=== PATIENT | male | born 1955 | race African-American/Black ===

== ENCOUNTER 2016-09-26 17:34 | Emergency (ER) | payer OTHER, BC ==
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
[2016-09-26] MEDS ORDERED: CYCLOBENZAPRINE HCL 10 MG TABLET PO ONE (21:04)
[2016-09-26] MEDS ORDERED: NAPROXEN 375 MG TABLET PO ONE (21:04)
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
[2016-09-26 21:54] VITALS: BP 154/98
== END 2016-09-26 21:54 | disposition home or self-care (01) ==
LOC: ER 17:34
DX: M54.6 Pain in thoracic spine (principal); V44.5XXA Car driver injured in collision with heavy transport vehicle or bus in traffic accident, initial encounter; I10 Essential (primary) hypertension
CPT/HCPCS: 99283; 71020; J3490

== ENCOUNTER → 2016-10-23 | Outpatient (CLI) | payer OTHER, BC ==
[2016-10-23 14:48] LABS: HEMATOCRIT 43.7 % (37.9-51.0); HEMOGLOBIN 14.8 g/dL (13.5-17.0); HGB HCT DIFFERENCE 0.7; MEAN CORPUSCULAR HEMOGLOBIN 32.1 pg (27.0-33.4); MEAN CORPUSCULAR HGB CONC 33.8 g/dL (32.0-36.0); MEAN CORPUSCULAR VOLUME 95 fl (80-97); RED BLOOD COUNT 4.59 10^6/uL (4.35-5.55); RED CELL DISTRIBUTION WIDTH 13.7 % (11.5-14.0); WHITE BLOOD COUNT 4.3 10^3/uL (4.0-10.5)
[2016-10-23 14:58] LABS: ALANINE AMINOTRANSFERASE 42 U/L (21-72); ALBUMIN 4.2 g/dL (3.5-5.0); ALKALINE PHOSPHATASE 83 U/L (38-126); ANION GAP 10 (5-19); ASPARTATE AMINO TRANSFERASE 52 U/L (17-59); BILIRUBIN,TOTAL 0.9 mg/dL (0.2-1.3); BLOOD UREA NITROGEN 16 mg/dL (7-20); CALCIUM 9.9 mg/dL (8.4-10.2); CARBON DIOXIDE 26 mmol/L (22-30); CHLORIDE 105 mmol/L (98-107); CREATININE RESULT 0.93 mg/dL (0.52-1.25); Direct HDL 51 mg/dL (>40); GLUCOSE 83 mg/dL (75-110); POTASSIUM 4.3 mmol/L (3.6-5.0); SODIUM 141.3 mmol/L (137-145); TOTAL PROTEIN 7.6 g/dL (6.3-8.2)
[2016-10-23 15:09] LABS: DIRECT LDL 75 mg/dL (<100)
[2016-10-23 15:15] LABS: BASOPHILS % (MANUAL) 1 % (0-2); EOSINOPHILS % (MANUAL) 2 % (0-6); LYMPHOCYTES % (MANUAL) 61 % (13-45); POLYCHROMASIA SLIGHT; TOTAL CELLS COUNTED 100
[2016-10-23 15:30] LABS: TRIGLYCERIDES 79 mg/dL (<150); VLDL CHOLESTEROL 15.8 mg/dL (10-31)
== END ==
LOC: OD 13:48
DX: Z79.899 Other long term (current) drug therapy (principal); I10 Essential (primary) hypertension
CPT/HCPCS: 36415; 80053; 80061; 83036; 84153; 84443; 85025

== ENCOUNTER 2017-01-05 14:00 | Emergency (ER) | payer BC ==
[2017-01-05] MEDS ORDERED: NORMAL SALINE 1000 ML 1,000 ML IV ONE (14:13)
--- NOTE | 2017-01-05 14:14 | ER Document Report ---
ED Medical Screen (RME) - General Chief Complaint: Diarrhea Stated Complaint: STOMACH PAIN Time Seen by Provider: 01/05/17 14:10 TRAVEL OUTSIDE OF THE [place] IN LAST 30 DAYS: No - HPI Notes: 01/05/17 14:14 Left lower quadrant pain nausea vomiting diarrhea 4 days - Related Data Allergies/Adverse Reactions: No Known Allergies Allergy (Verified 01/05/17 14:10) Past Medical History - Social History Chew tobacco use (# tins/day): No Frequency of alcohol use: Occasional Drug Abuse: None - Past Medical History Cardiac Medical History: Reports: Hx Hypertension Renal/ Medical History: Denies: Hx Peritoneal Dialysis Musculoskeltal Medical History: Reports Hx Arthritis, Reports Hx Musculoskeletal Deformity, Reports Hx Musculoskeletal Trauma Skin Medical History: Reports Hx Cellulitis - Immunizations Hx Diphtheria, Pertussis, Tetanus Vaccination: Yes Review of Systems - Review of Systems Gastrointestinal: Abdominal pain, Diarrhea, Nausea, Vomiting Physical Exam - Vital signs Vitals: Temp Pulse Resp BP Pulse Ox 99.7 F 92 18 115/99 H 98 01/05/17 14:01 01/05/17 14:01 01/05/17 14:01 01/05/17 14:01 01/05/17 14:01 - Abdominal Tenderness: No: Nontender - Left lower quadrant tenderness mild to moderate no rebound no guarding Course - Re-evaluation Re-evalutation: 01/05/17 14:14 I have greeted and performed a rapid initial assessment of this patient. A comprehensive ED assessment and evaluation of the patient, analysis of test results and completion of the medical decision making process will be conducted by additional ED providers. - Vital Signs Vital signs: Temp Pulse Resp BP Pulse Ox 99.7 F 92 18 115/99 H 98 01/05/17 14:01 01/05/17 14:01 01/05/17 14:01 01/05/17 14:01 01/05/17 14:01
[2017-01-05 14:56] LABS: ABSOLUTE MONOCYTES (AUTO) 0.3 10^3/uL (0.1-1.4); ABSOLUTE NEUT (AUTO) 7.5 10^3/uL (1.7-8.2); BASOPHILS % (AUTO) 0.3 % (0-2); HEMOGLOBIN 15.7 g/dL (13.5-17.0); HGB HCT DIFFERENCE 0.1; LYMPHOCYTES % (AUTO) 10.9 % (13-45); MEAN CORPUSCULAR HEMOGLOBIN 32.3 pg (27.0-33.4); MEAN CORPUSCULAR HGB CONC 33.5 g/dL (32.0-36.0); MEAN CORPUSCULAR VOLUME 96 fl (80-97); MONOCYTES % (AUTO) 3.6 % (3-13); RED BLOOD COUNT 4.88 10^6/uL (4.35-5.55); SEGMENTED NEUTROPHILS % (AUTO) 85.2 % (42-78); WHITE BLOOD COUNT 8.8 10^3/uL (4.0-10.5)
--- NOTE | 2017-01-05 14:59 | ER Document Report ---
ED GI/ - General Chief Complaint: Diarrhea Stated Complaint: STOMACH PAIN Time Seen by Provider: 01/05/17 14:10 Mode of Arrival: Ambulatory Information source: Patient Notes: 61 yo male c/o diarrhea and upper abdominal pain for 4 days. Anus is also irritated from all the diarrhea. In room with his . No fever today. No dysuria, frequency, groin or penile pain. TRAVEL OUTSIDE OF THE [place] IN LAST 30 DAYS: No - Related Data Allergies/Adverse Reactions: No Known Allergies Allergy (Verified 01/05/17 14:10) Past Medical History - General Information source: Patient - Social History Smoking Status: Never Smoker Chew tobacco use (# tins/day): No Frequency of alcohol use: Occasional Drug Abuse: None Lives with: Family Family History: Reviewed & Not Pertinent - Past Medical History Cardiac Medical History: Reports: Hx Hypertension Renal/ Medical History: Denies: Hx Peritoneal Dialysis Musculoskeltal Medical History: Reports Hx Arthritis, Reports Hx Musculoskeletal Deformity, Reports Hx Musculoskeletal Trauma Skin Medical History: Reports Hx Cellulitis Surgical Hx: Negative - Immunizations Hx Diphtheria, Pertussis, Tetanus Vaccination: Yes Review of Systems - Review of Systems Constitutional: No symptoms reported EENT: No symptoms reported Cardiovascular: No symptoms reported Respiratory: No symptoms reported Gastrointestinal: See HPI Genitourinary: No symptoms reported Male Genitourinary: No symptoms reported Musculoskeletal: No symptoms reported Skin: No symptoms reported Hematologic/Lymphatic: No symptoms reported Neurological/Psychological: No symptoms reported Physical Exam - Vital signs Vitals: Temp Pulse Resp BP Pulse Ox 99.7 F 92 18 115/99 H 98 01/05/17 14:01 01/05/17 14:01 01/05/17 14:01 01/05/17 14:01 01/05/17 14:01 Interpretation: Normal - General General appearance: Appears well, Alert - HEENT Head: Normocephalic, Atraumatic Eyes: Normal Conjunctiva: Normal Pupils: PERRL Mucous membranes: Dry Pharynx: Normal Neck: Supple. No: Lymphadenopathy - Respiratory Respiratory status: No respiratory distress Chest status: Nontender Breath sounds: Normal Chest palpation: Normal - Cardiovascular Rhythm: Regular Heart sounds: Normal auscultation Murmur: No - Abdominal Inspection: Normal Distension: No distension Bowel sounds: Normal Tenderness: Tender - minimal epigstric, RUQ Organomegaly: No organomegaly. No: Hepatomegaly, Splenomegaly - Back Back: Normal, Nontender. No: CVA tenderness - Extremities General upper extremity: Normal inspection, Nontender, Normal color, Normal ROM , Normal temperature General lower extremity: Normal inspection, Nontender, Normal color, Normal ROM , Normal temperature, Normal weight bearing. No: Estela's sign - Neurological Neuro grossly intact: Yes Cognition: Normal Orientation: AAOx4 Yelitza Coma Scale Eye Opening: Spontaneous Yelitza Coma Scale Verbal: Oriented Yelitza Coma Scale Motor: Obeys Commands Yelitza Coma Scale Total: 15 Speech: Normal Motor strength normal: LUE, RUE, LLE, RLE Sensory: Normal - Psychological Associated symptoms: Normal affect, Normal mood - Skin Skin Temperature: Warm Skin Moisture: Dry Skin Color: Normal Skin irregularity: negative: Rash Course - Re-evaluation Re-evalutation: 01/05/17 16:[address] scan, lactic acid is 1, CBC is normal, electrolytes show creatinine of 1.3. 01/05/17 17:19 Consult this bone treatment with Dr. Aj, CT scan shows a right upper quadrant colitis with a liver hemangioma 01/05/17 17:19 - Vital Signs Vital signs: Temp Pulse Resp BP Pulse Ox 99.7 F 92 17 152/88 H 98 01/05/17 14:01 01/05/17 14:01 01/05/17 17:35 01/05/17 17:35 01/05/17 17:35 - Laboratory Result Diagrams: 01/05/17 14:32 01/05/17 14:32 Laboratory results interpreted by me: 01/05/17 01/05/17 14:32 14:32 Seg Neutrophils % 85.2 H Lymphocytes % 10.9 L Creatinine 1.30 H Est GFR (Non-Af Amer) 56 L Discharge - Discharge Clinical Impression: right upper quadrant colitis, Anal inflammation, liver hemangioma Diarrhea Qualifiers: Diarrhea type: unspecified type Qualified Code(s): R19.7 - Diarrhea, unspecified Condition: Good Disposition: HOME, SELF-CARE Instructions: Metronidazole ([facility]), Ciprofloxacin ([facility]), Colitis, Nonspecific ( [facility]), Gastroenterology Additional Instructions: continue to hydrate with oral fluids advance diet as tolerated referral to architectural inspector for colonoscopy/treatment to er if worse let your primary care doctor know about the liver hemangioma Please complete the patient satisfaction survey if you get one, and return it.. If you do not receive a survey, then you can go to the [facility] website, [email or web address] and place your comments about your very good care. Thank you very much. It was a pleasure being your medical provider today. Prescriptions: Ciprofloxacin HCl [Cipro 500 mg Tablet] 500 mg PO TID #21 tablet Hydrocortisone Acetate [Anusol Hc 25 mg Supp.rect] 1 supp.rect CO BID #14 supp.rect Metronidazole 500 mg PO Q6H #28 tablet Forms: Return to Work
[2017-01-05 15:14] LABS: ALANINE AMINOTRANSFERASE 37 U/L (21-72); ALBUMIN 4.2 g/dL (3.5-5.0); ALKALINE PHOSPHATASE 78 U/L (38-126); ANION GAP 13 (5-19); ASPARTATE AMINO TRANSFERASE 32 U/L (17-59); BILIRUBIN,DIRECT 0.4 mg/dL (0.0-0.4); BILIRUBIN,TOTAL 0.8 mg/dL (0.2-1.3); BLOOD UREA NITROGEN 14 mg/dL (7-20); CALCIUM 9.4 mg/dL (8.4-10.2); CARBON DIOXIDE 24 mmol/L (22-30); CHLORIDE 101 mmol/L (98-107); GLUCOSE 92 mg/dL (75-110); LIPASE 81.8 U/L (23-300); POTASSIUM 3.9 mmol/L (3.6-5.0); SODIUM 137.6 mmol/L (137-145)
[2017-01-05] MEDS ORDERED: METRONIDAZOLE 500 MG TABLET PO ONE (17:07)
[2017-01-05] MEDS ORDERED: CIPROFLOXACIN HCL 500 MG TABLET PO ONE ×2 (17:07)
[2017-01-05 17:43] VITALS: BP 152/88
== END 2017-01-05 17:42 | disposition home or self-care (01) ==
LOC: ER 14:00
DX: K52.9 Noninfective gastroenteritis and colitis, unspecified (principal); K62.89 Other specified diseases of anus and rectum; D18.03 Hemangioma of intra-abdominal structures; R19.7 Diarrhea, unspecified; R10.10 Upper abdominal pain, unspecified; I10 Essential (primary) hypertension
CPT/HCPCS: 99284; 96360; 36415; 83690; 85025; 80053; 83605; 74177; J7030

== ENCOUNTER 2018-02-09 16:17 | Inpatient (IN) | payer SELFPAY ==
[2018-02-09] MEDS ORDERED: NORMAL SALINE 1000 ML 1,000 ML IV ONE ×2 (19:24→21:13)
--- NOTE | 2018-02-09 19:29 | ER Document Report ---
ED Medical Screen (RME) - General Chief Complaint: Weakness Stated Complaint: WEAKNESS/DIZZY Time Seen by Provider: 02/09/18 19:23 TRAVEL OUTSIDE OF THE [place] IN LAST 30 DAYS: No - HPI Notes: 02/09/18 19:25 Patient is a 62-year-old male with a history of hypertension who presents to the ED complaining of weakness, dizziness, and muscle cramping primarily 3 days ago when he was at work. 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 Patient states that he started feeling warm, dizzy, and cramping at that time. Patient states that he had to lay down for a little while and was given water. Patient states that he went home and stayed in bed all day Friday. Patient states that he now feels much better than he did and does not have any more dizziness, weakness , or muscle cramping, but wanted evaluated to make sure that he was okay to go back to work. He states that he is eating and drinking without any difficulties. He is urinating normally and having normal bowel movements although he did have one loose stool this morning. He denies any drug allergies. No other concerns or complaints. +smoker. No other significant cardiopulmonary medical history. Denies any prolonged immobilization, recent surgery/trauma, previous DVT/PE, hormone use, cancer. Denies any headache, fever, neck pain, changes in vision/speech/mentation/hearing, URI, sore throat, chest pain, palpitations, syncope, cough, shortness of breath, wheeze, dyspnea, abdominal pain, nausea/vomiting/diarrhea, urinary retention, dysuria, hematuria , loss of control of bowel or bladder, numbness/tingling, muscle paralysis/ weakness, or rash. I have treated and performed a rapid initial assessment of this patient. A comprehensive ED assessment and evaluation of the patient, analysis of test results and completion of medical decision making process will be conducted by additional ED providers. PHYSICAL EXAMINATION: GENERAL: Well-appearing, well-nourished and in no acute distress. A&Ox4. Answers questions appropriately. LUNGS: Breath sounds clear to auscultation bilaterally and equal. No wheezes rales or rhonchi. HEART: Regular rate and rhythm without murmurs, rubs, gallops. ABDOMEN: Soft, nondistended abdomen. No guarding, no rebound. No masses appreciated. Normal bowel sounds present. No CVA tenderness bilaterally. Non- tender (but cannot elicit thorough abd exam w/o table). Extremities: No cyanosis, clubbing, or edema b/l. Estela neg b/l. No asymmetry NEUROLOGICAL: Normal speech, normal gait. PSYCH: Normal mood, normal affect. - Related Data Allergies/Adverse Reactions: No Known Allergies Allergy (Verified 01/05/17 14:10) Past Medical History - Past Medical History Cardiac Medical History: Reports: Hx Hypertension Renal/ Medical History: Denies: Hx Peritoneal Dialysis Musculoskeltal Medical History: Reports Hx Arthritis, Reports Hx Musculoskeletal Deformity, Reports Hx Musculoskeletal Trauma Skin Medical History: Reports Hx Cellulitis - Immunizations Hx Diphtheria, Pertussis, Tetanus Vaccination: Yes Physical Exam - Vital signs Vitals: Temp Pulse Resp BP Pulse Ox 98.7 F 58 L 20 116/70 99 02/09/18 16:29 02/09/18 16:29 02/09/18 16:29 02/09/18 16:29 02/09/18 16:29 Course - Vital Signs Vital signs: Temp Pulse Resp BP Pulse Ox 98.7 F 58 L 20 116/70 99 02/09/18 16:29 02/09/18 16:29 02/09/18 16:29 02/09/18 16:29 02/09/18 16:29
[2018-02-09 19:54] LABS: ABSOLUTE BASOPHILS # (AUTO) 0.1 10^3/uL (0.0-0.2); ABSOLUTE EOSINOPHILS # (AUTO) 0.2 10^3/uL (0.0-0.6); ABSOLUTE LYMPHOCYTES (AUTO) 2.5 10^3/uL (0.5-4.7); ABSOLUTE MONOCYTES (AUTO) 0.4 10^3/uL (0.1-1.4); ABSOLUTE NEUT (AUTO) 1.6 10^3/uL (1.7-8.2); BASOPHILS % (AUTO) 1.2 % (0-2); EOSINOPHILS % (AUTO) 4.1 % (0-6); HEMATOCRIT 41.4 % (37.9-51.0); HEMOGLOBIN 13.8 g/dL (13.5-17.0); LYMPHOCYTES % (AUTO) 52.9 % (13-45); MEAN CORPUSCULAR HEMOGLOBIN 31.9 pg (27.0-33.4); MEAN CORPUSCULAR HGB CONC 33.4 g/dL (32.0-36.0); MEAN CORPUSCULAR VOLUME 96 fl (80-97); MONOCYTES % (AUTO) 8.3 % (3-13); PLATELET COUNT 225 10^3/uL (150-450); RED BLOOD COUNT 4.33 10^6/uL (4.35-5.55); RED CELL DISTRIBUTION WIDTH 14.2 % (11.5-14.0); SEGMENTED NEUTROPHILS % (AUTO) 33.5 % (42-78); TOTAL CELLS COUNTED % (AUTO) 100 %; WHITE BLOOD COUNT 4.8 10^3/uL (4.0-10.5)
[2018-02-09 19:59] LABS: APPEARANCE,URINE CLEAR; BILIRUBIN,URINE NEGATIVE (NEGATIVE); COLOR,URINE STRAW; GLUCOSE, URINE NEGATIVE (NEGATIVE); KETONES,URINE NEGATIVE (NEGATIVE); LEUKOCYTE ESTERASE,URINE NEGATIVE (NEGATIVE); NITRITE,URINE NEGATIVE (NEGATIVE); PROTEIN,URINE NEGATIVE (NEGATIVE); URINE SPECIFIC GRAVITY 1.014; UROBILINOGEN,URINE NEGATIVE mg/dL (<2.0)
[2018-02-09 20:11] LABS: ALANINE AMINOTRANSFERASE 33 U/L (21-72); ALBUMIN 4.4 g/dL (3.5-5.0); ALKALINE PHOSPHATASE 79 U/L (38-126); ANION GAP 11 (5-19); ASPARTATE AMINO TRANSFERASE 37 U/L (17-59); BILIRUBIN,DIRECT 0.3 mg/dL (0.0-0.4); BILIRUBIN,TOTAL 0.3 mg/dL (0.2-1.3); BLOOD UREA NITROGEN 84 mg/dL (7-20); CALCIUM 9.3 mg/dL (8.4-10.2); CARBON DIOXIDE 24 mmol/L (22-30); CHLORIDE 111 mmol/L (98-107); CREATINE KINASE 925 U/L (55-170); GLUCOSE 86 mg/dL (75-110); SODIUM 145.9 mmol/L (137-145); TOTAL PROTEIN 8.4 g/dL (6.3-8.2)
[2018-02-09 20:17] LABS: POTASSIUM 6.3 mmol/L (3.6-5.0)
--- NOTE | 2018-02-09 21:37 | ER Document Report ---
ED General - General Chief Complaint: Weakness Stated Complaint: WEAKNESS/DIZZY Time Seen by Provider: 02/09/18 19:23 Notes: Patient is a 62-year-old male with history of essential hypertension who presents with 2 days of body aches, fatigue, and lightheadedness. Patient and his significant other at the bedside reports that the symptoms started after he was working outside all day on Friday and have been ongoing since that time. The patient reports that he has been drinking fluids which usually helps when he has similar symptoms but they have not relieved his symptoms on this occasion. He notes some associated nausea but no vomiting. He has not seen his general doctor regarding today's concerns. Nothing is been noted to worsen his symptoms. He denies any associated chest pain or shortness of breath. No fever. TRAVEL OUTSIDE OF THE [place] IN LAST 30 DAYS: No - Related Data Allergies/Adverse Reactions: No Known Allergies Allergy (Verified 01/05/17 14:10) Past Medical History - General Information source: Patient - Social History Smoking Status: Current Every Day Smoker Chew tobacco use (# tins/day): No Frequency of alcohol use: Rare Drug Abuse: None Lives with: Spouse/Significant other Family History: Reviewed & Not Pertinent Patient has suicidal ideation: No Patient has homicidal ideation: No - Past Medical History Cardiac Medical History: Reports: Hx Hypertension Renal/ Medical History: Denies: Hx Peritoneal Dialysis Musculoskeltal Medical History: Reports Hx Arthritis, Reports Hx Musculoskeletal Deformity, Reports Hx Musculoskeletal Trauma Skin Medical History: Reports Hx Cellulitis - Immunizations Hx Diphtheria, Pertussis, Tetanus Vaccination: Yes Review of Systems - Review of Systems Notes: Constitutional: Negative for fever. Positive for body aches HENT: Negative for sore throat. Eyes: Negative for visual changes. Cardiovascular: Negative for chest pain. Positive for lightheadedness Respiratory: Negative for shortness of breath. Gastrointestinal: Negative for abdominal pain, vomiting or diarrhea. Genitourinary: Negative for dysuria. Musculoskeletal: Negative for back pain. Skin: Negative for rash. Neurological: Negative for headaches, weakness or numbness. 10 point ROS negative except as marked above and in HPI. Physical Exam - Vital signs Vitals: Temp Pulse Resp BP Pulse Ox 98.7 F 58 L 20 116/70 99 02/09/18 16:29 02/09/18 16:29 02/09/18 16:29 02/09/18 16:29 02/09/18 16:29 Interpretation: Bradycardic Notes: PHYSICAL EXAMINATION: GENERAL: Well-appearing, well-nourished and in no acute distress. HEAD: Atraumatic, normocephalic. EYES: Pupils equal round and reactive to light, extraocular movements intact, sclera anicteric, conjunctiva are normal. ENT: nares patent, oropharynx clear without exudates. Moderately dry mucous membranes. NECK: Normal range of motion, supple without lymphadenopathy LUNGS: Breath sounds clear to auscultation bilaterally and equal. No wheezes rales or rhonchi. HEART: Regular bradycardia without murmurs ABDOMEN: Soft, nontender, normoactive bowel sounds. No guarding, no rebound. No masses appreciated. EXTREMITIES: Normal range of motion, no pitting or edema. No cyanosis. NEUROLOGICAL: No focal neurological deficits. Moves all extremities spontaneously and on command. PSYCH: Normal mood, normal affect. SKIN: Warm, Dry, normal turgor, no rashes or lesions noted. Course - Re-evaluation Re-evalutation: 02/09/18 21:35 Patient presents in acute renal failure appears to be from a prerenal azotemia and clinical history is consistent with severe dehydration with associated probable rhabdomyolysis from an event 2 days ago when he was outside almost all day. The patient's symptoms have been ongoing since that time. His labs are also notable for hyperkalemia at 6.3 although there are no EKG changes. The patient is otherwise nontoxic in appearance, vitals do show that he is bradycardic which he notes his brace baseline. He does appear clinically dehydrated on examination. Will immediately order 2 L of IV fluid, continuous cardiac monitoring, request hospitalization. - Vital Signs Vital signs: Temp Pulse Resp BP Pulse Ox 98.1 F 52 L 20 106/66 100 02/10/18 03:50 02/10/18 03:50 02/10/18 03:50 02/10/18 03:50 02/10/18 03:50 - Laboratory Result Diagrams: 02/09/18 19:30 02/09/18 19:30 Laboratory results interpreted by me: 02/09/18 02/09/18 02/09/18 19:30 19:30 19:30 RBC 4.33 L RDW 14.2 H Seg Neutrophils % 33.5 L Lymphocytes % 52.9 H Absolute Neutrophils 1.6 L Sodium 145.9 H Potassium 6.3 H* Chloride 111 H BUN 84 H Creatinine 3.90 H Est GFR ( Amer) 19 L Est GFR (Non-Af Amer) 16 L Magnesium 2.6 H Creatine Kinase 925 H Total Protein 8.4 H Urine Blood SMALL H - EKG Interpretation by Me Additional EKG results interpreted by me: 02/09/18 21:36 Sinus bradycardia. Rate 49. No ST elevations or depressions. QTC is 383. Discharge - Discharge Clinical Impression: Prerenal azotemia, Hyperkalemia Acute renal failure Qualifiers: Acute renal failure type: unspecified Qualified Code(s): N17.9 - Acute kidney failure, unspecified Rhabdomyolysis Qualifiers: Rhabdomyolysis type: non-traumatic Qualified Code(s): M62.82 - Rhabdomyolysis Condition: Fair Disposition: ADMITTED INPATIENT Admitting Provider: Hospitalist Unit Admitted: Telemetry
[2018-02-09] MEDS ORDERED: SODIUM POLYSTYRENE SULFONATE 15 GM/60 ML PO ONE ×2 (21:41→22:30)
[2018-02-09] MEDS ORDERED: ACETAMINOPHEN 325 MG TABLET PO PRN (21:50)
[2018-02-09] MEDS ORDERED: ONDANSETRON HCL INJ/PF 4 MG/2 ML SDV IV PRN (21:50)
[2018-02-09] MEDS ORDERED: NORMAL SALINE 1000 ML 1,000 ML IV PRN (21:55)
--- NOTE | 2018-02-09 22:05 | PDOC H&P ---
History of Present Illness Admission Date/PCP: ELLEN ZHANG MD History of Present Illness: ARDEN JENKINS is a 62 year old black male with no significant medical history except hypertension presents with bilateral leg cramps. His initial blood work shows acute kidney injury with creatinine of 3.9 and mild rhabdomyolysis and severe hyperkalemia with potassium of 6.3. Patient denied any history of kidney disease and no external fluid loss in the form of vomiting or diarrhea. Patient works at [employer] and his work requires him to do frequent trips to outside. Patient stayed outside the whole day yesterday. He denies any fever, chills, cough, chest pain, palpitation, diaphoresis. No urinary complaints. No headache dizziness or blurry vision. He also has hyperkalemia and no EKG changes. Past Medical History Cardiac Medical History: Reports: Hypertension Musculoskeltal Medical History: Reports: Arthritis Social History Smoking Status: Current Every Day Smoker Hx Recreational Drug Use: No Drugs: None Family History Family History: Reviewed & Not Pertinent, Other - Asthma Parental Family History Reviewed: Yes Children Family History Reviewed: Yes Sibling(s) Family History Reviewed.: Yes Medication/Allergy Home Medications: Azithromycin [Zithromax 250 mg Tablet] 250 mg PO ASDIR PRN #6 tablet 03/28/14 Tramadol HCl [Ultram 50 mg Tablet] 50 mg PO ASDIR PRN #20 tablet 03/28/14 Cyclobenzaprine HCl [Flexeril 5 mg Tablet] 5 mg PO TID PRN #15 tablet 12/12/14 Oxycodone HCl/Acetaminophen [Percocet 5-325 mg Tablet] 1 - 2 tab PO ASDIR PRN # 15 tablet 12/12/14 Oxycodone HCl/Acetaminophen [Percocet 5-325 mg Tablet] 1 - 2 tab PO Q4H PRN #15 tablet 12/23/14 Cyclobenzaprine HCl [Flexeril 10 mg Tablet] 10 mg PO TIDP PRN #15 tab 09/26/16 Naproxen 500 mg PO BIDP PRN #20 tablet 09/26/16 Ciprofloxacin HCl [Cipro 500 mg Tablet] 500 mg PO TID #21 tablet 01/05/17 Hydrocortisone Acetate [Anusol Hc 25 mg Supp.rect] 1 supp.rect MO BID #14 supp.rect 01/05/17 Metronidazole 500 mg PO Q6H #28 tablet 01/05/17 Allergies/Adverse Reactions: No Known Allergies Allergy (Verified 01/05/17 14:10) Review of Systems Constitutional: PRESENT: as per HPI Eyes: PRESENT: as per HPI Ears: ABSENT: hearing changes Cardiovascular: ABSENT: chest pain, dyspnea on exertion, edema, orthropnea, palpitations Respiratory: ABSENT: cough, hemoptysis Gastrointestinal: ABSENT: abdominal pain, constipation, diarrhea, hematemesis, hematochezia, nausea, vomiting Genitourinary: ABSENT: dysuria, hematuria Neurological: ABSENT: abnormal gait, abnormal speech, confusion, dizziness, focal weakness, syncope Psychiatric: ABSENT: anxiety, depression, homidical ideation, suicidal ideation Physical Exam Vital Signs: Temp Pulse Resp BP Pulse Ox 98.7 F 58 L 20 116/70 99 02/09/18 16:29 02/09/18 16:29 02/09/18 16:29 02/09/18 16:29 02/09/18 16:29 Intake & Output 02/08/18 02/09/18 02/10/18 06:59 06:59 06:59 Weight 101.5 kg General appearance: PRESENT: no acute distress, well-developed, well-nourished Head exam: PRESENT: atraumatic, normocephalic Eye exam: PRESENT: conjunctiva pink, EOMI, PERRLA. ABSENT: scleral icterus Neck exam: ABSENT: carotid bruit, JVD, lymphadenopathy, thyromegaly Respiratory exam: PRESENT: clear to auscultation eneida. ABSENT: rales, rhonchi, wheezes Cardiovascular exam: PRESENT: RRR. ABSENT: diastolic murmur, rubs, systolic murmur Extremities exam: PRESENT: full ROM. ABSENT: calf tenderness, clubbing, pedal edema Neurological exam: PRESENT: alert, awake, oriented to time, oriented to situation Psychiatric exam: PRESENT: normal mood Results Laboratory Results: 02/09/18 19:30 02/09/18 19:30 02/09/18 02/09/18 02/09/18 19:30 19:30 19:30 WBC 4.8 RBC 4.33 L Hgb 13.8 Hct 41.4 MCV 96 MCH 31.9 MCHC 33.4 RDW 14.2 H Plt Count 225 Seg Neutrophils % 33.5 L Lymphocytes % 52.9 H Monocytes % 8.3 Eosinophils % 4.1 Basophils % 1.2 Absolute Neutrophils 1.6 L Absolute Lymphocytes 2.5 Absolute Monocytes 0.4 Absolute Eosinophils 0.2 Absolute Basophils 0.1 Sodium 145.9 H Potassium 6.3 H* Chloride 111 H Carbon Dioxide 24 Anion Gap 11 BUN 84 H Creatinine 3.90 H Est GFR ( Amer) 19 L Est GFR (Non-Af Amer) 16 L Glucose 86 Calcium 9.3 Magnesium 2.6 H Total Bilirubin 0.3 AST 37 ALT 33 Alkaline Phosphatase 79 Total Protein 8.4 H Albumin 4.4 Urine Color STRAW Urine Appearance CLEAR Urine pH 5.0 Ur Specific [place] 1.014 Urine Protein NEGATIVE Urine Glucose (UA) NEGATIVE Urine Ketones NEGATIVE Urine Blood SMALL H Urine Nitrite NEGATIVE Ur Leukocyte Esterase NEGATIVE Urine WBC (Auto) 1 Urine RBC (Auto) 0 02/09/18 19:30 Creatine Kinase 925 H Assessment & Plan - Diagnosis (1) Acute kidney injury Is this a current diagnosis for this admission?: Yes Plan: This most probably prerenal azotemia. We will cautiously hydrate him and check his BMP in a.m. Patient also encouraged to drink as much water as he can at work. (2) Severe hyperkalemia Is this a current diagnosis for this admission?: Yes Plan: No EKG changes. He will be given Kayexalate and check his potassium level in a.m. - Time Time Spent: 30 to 50 Minutes - Inpatient Certification Medical Necessity: Need Close Monitoring Due to Risk of Patient Decompensation, Need For IV Fluids
--- NOTE | 2018-02-09 22:16 | EKG REPORT ---
SEVERITY:- OTHERWISE NORMAL ECG - SINUS BRADYCARDIA LEFT AXIS DEVIATION : Confirmed by: Destiny Reyes 09-Feb-2018 22:15:14
[2018-02-10 04:59] LABS: HEMATOCRIT 36.9 % (37.9-51.0); HEMOGLOBIN 12.4 g/dL (13.5-17.0); MEAN CORPUSCULAR HEMOGLOBIN 31.7 pg (27.0-33.4); MEAN CORPUSCULAR HGB CONC 33.5 g/dL (32.0-36.0); MEAN CORPUSCULAR VOLUME 95 fl (80-97); PLATELET COUNT 201 10^3/uL (150-450); RED CELL DISTRIBUTION WIDTH 14.2 % (11.5-14.0); WHITE BLOOD COUNT 4.9 10^3/uL (4.0-10.5)
[2018-02-10] MEDS: LANSOPRAZOLE 30 MG TAB.RAP.DR PO SCH (05:16)
[2018-02-10 05:49] LABS: ANION GAP 9 (5-19); CALCIUM 8.7 mg/dL (8.4-10.2); CARBON DIOXIDE 20 mmol/L (22-30); CHLORIDE 116 mmol/L (98-107); CREATINE KINASE 784 U/L (55-170); GLUCOSE 84 mg/dL (75-110); POTASSIUM 5.8 mmol/L (3.6-5.0); SODIUM 144.5 mmol/L (137-145)
[2018-02-10 06:17] LABS: BLOOD UREA NITROGEN 62 mg/dL (7-20)
[2018-02-10] MEDS: ENOXAPARIN SODIUM INJ 40 MG/0.4 ML DISP.SYRIN SUBCUT SCH (10:16)
[2018-02-10] MEDS ORDERED: INSULIN REG, HUMAN 100 UNIT/ML 3 ML VIAL (PYX) IV ONE (13:00)
[2018-02-10] MEDS ORDERED: DEXTROSE 50%-WATER 25 GM/50 ML DISP.SYRIN IV ONE (13:00)
--- NOTE | 2018-02-10 17:28 | PDOC PROGRESS REPORT ---
Subjective Progress Note for:: 02/10/18 Subjective:: Patient is seen resting in bed. He denies any chest pain, shortness of breath or dyspnea. He denies any nausea, vomiting or abdominal pain. He is eating well. He is drinking fluids. He denies any significant arthralgias myalgias. Muscle cramping has subsided. Remaining review of systems are negative Reason For Visit: KIDNEY INJURY. SEVERE HYPERKALEMIA Physical Exam Vital Signs: Temp Pulse Resp BP Pulse Ox 97.4 F 48 L 12 133/80 H 100 02/10/18 11:58 02/10/18 11:58 02/10/18 11:58 02/10/18 11:58 02/10/18 11:58 Intake & Output 02/09/18 02/10/18 02/11/18 06:59 06:59 06:59 Intake Total 972 Balance 972 Weight 101.5 kg General appearance: PRESENT: no acute distress, obese, well-developed, well- nourished Head exam: PRESENT: atraumatic, normocephalic Eye exam: PRESENT: conjunctiva pink, EOMI, PERRLA. ABSENT: scleral icterus Ear exam: PRESENT: normal external ear exam Mouth exam: PRESENT: moist, tongue midline Neck exam: ABSENT: carotid bruit, JVD, lymphadenopathy, thyromegaly Respiratory exam: PRESENT: clear to auscultation eneida, symmetrical, unlabored. ABSENT: rales, rhonchi, wheezes Cardiovascular exam: PRESENT: RRR. ABSENT: diastolic murmur, rubs, systolic murmur Pulses: PRESENT: normal dorsalis pedis pul Vascular exam: PRESENT: normal capillary refill GI/Abdominal exam: PRESENT: normal bowel sounds, soft. ABSENT: distended, guarding, mass, organolmegaly, rebound, tenderness Rectal exam: PRESENT: deferred Extremities exam: PRESENT: full ROM. ABSENT: calf tenderness, clubbing, pedal edema Neurological exam: PRESENT: alert, awake, oriented to person, oriented to place , oriented to time, oriented to situation, CN II-XII grossly intact. ABSENT: motor sensory deficit Psychiatric exam: PRESENT: appropriate affect, normal mood. ABSENT: homicidal ideation, suicidal ideation Skin exam: PRESENT: dry, intact, warm. 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 He is also on AMANDA inhibitor for his blood pressure. He started noting muscle cramping 02/08, he went to a local urgent care and was referred to the emergency room here. There is been improvement of his kidney function with IV hydration. Will continue IV hydration, recheck BMP at 4 PM. Avoid nephrotoxic medications. Continue to hold AMANDA inhibitor. (2) Hyperkalemia Is this a current diagnosis for this admission?: Yes Plan: Improving. patient was given Kayexalate in the emergency room. We will give him a dose of D50 and insulin, check potassium at 4 PM (3) Prerenal azotemia Is this a current diagnosis for this admission?: Yes Plan: Continue IV hydration and monitor. (4) Rhabdomyolysis Qualifiers: Rhabdomyolysis type: non-traumatic Qualified Code(s): M62.82 - Rhabdomyolysis Is this a current diagnosis for this admission?: Yes Plan: Secondary to dehydration (5) Essential hypertension Is this a current diagnosis for this admission?: Yes Plan: Is presently normotensive off his AMANDA inhibitor. - Time Time Spent with patient: 25-34 minutes Total Critical Time (Minutes): 20 Medications reviewed and adjusted accordingly: Yes Anticipated discharge: Home
[2018-02-10 17:32] LABS: ANION GAP 9 (5-19); CALCIUM 8.8 mg/dL (8.4-10.2); CARBON DIOXIDE 23 mmol/L (22-30); CHLORIDE 113 mmol/L (98-107); GLUCOSE 81 mg/dL (75-110); POTASSIUM 5.4 mmol/L (3.6-5.0); SODIUM 145.2 mmol/L (137-145)
[2018-02-10 17:49] LABS: BLOOD UREA NITROGEN 42 mg/dL (7-20)
[2018-02-11] MEDS: LANSOPRAZOLE 30 MG TAB.RAP.DR PO SCH (05:03)
[2018-02-11 08:13] LABS: ANION GAP 7 (5-19); BLOOD UREA NITROGEN 31 mg/dL (7-20); CARBON DIOXIDE 22 mmol/L (22-30); CHLORIDE 116 mmol/L (98-107); GLUCOSE 108 mg/dL (75-110); SODIUM 145.2 mmol/L (137-145)
[2018-02-11 08:15] LABS: POTASSIUM 5.8 mmol/L (3.6-5.0)
[2018-02-11] MEDS: ENOXAPARIN SODIUM INJ 40 MG/0.4 ML DISP.SYRIN SUBCUT SCH (11:35)
[2018-02-12] MEDS: NORMAL SALINE 1000 ML 1,000 ML IV PRN (05:08)
[2018-02-12] MEDS: LANSOPRAZOLE 30 MG TAB.RAP.DR PO SCH (05:09)
[2018-02-12 05:54] LABS: ANION GAP 7 (5-19); BLOOD UREA NITROGEN 20 mg/dL (7-20); CALCIUM 9.3 mg/dL (8.4-10.2); CARBON DIOXIDE 21 mmol/L (22-30); CHLORIDE 115 mmol/L (98-107); GLUCOSE 82 mg/dL (75-110); POTASSIUM 5.9 mmol/L (3.6-5.0); SODIUM 142.6 mmol/L (137-145)
[2018-02-12] MEDS ORDERED: SODIUM POLYSTYRENE SULFONATE 15 GM/60 ML PO ONE (11:07)
[2018-02-12] MEDS ORDERED: METOPROLOL TARTRATE 50 MG TABLET PO ONE (12:00)
[2018-02-12] MEDS: ENOXAPARIN SODIUM INJ 40 MG/0.4 ML DISP.SYRIN SUBCUT SCH (12:57)
--- NOTE | 2018-02-12 15:04 | PDOC PROGRESS REPORT ---
Subjective Progress Note for:: 02/12/18 Subjective:: This is a 62-year-old black male patient admitted for acute kidney injury with creatinine of 3.9 and today after aggressive hydration his creatinine dropped to 1.23. At the time of admission patient also found to have hyperkalemia with potassium of 6.3 for which she was given Kayexalate but still the potassium is in the higher side which is 5.9 today gave him another dose of 30 g of Kayexalate. Otherwise patient does not have new complaint he is awake alert oriented is not in pain or any form of cardiorespiratory distress. Reason For Visit: KIDNEY INJURY. SEVERE HYPERKALEMIA Physical Exam Vital Signs: Temp Pulse Resp BP Pulse Ox 97.8 F 43 L 16 119/71 100 02/12/18 12:00 02/12/18 12:00 02/12/18 12:00 02/12/18 12:00 02/12/18 12:00 Intake & Output 02/11/18 02/12/18 02/13/18 06:59 06:59 06:59 Intake Total 5592 7881 Balance 5592 7881 Weight 105.9 kg General appearance: PRESENT: no acute distress, well-developed, well-nourished Head exam: PRESENT: atraumatic, normocephalic Eye exam: PRESENT: conjunctiva pink, EOMI, PERRLA. ABSENT: scleral icterus Ear exam: PRESENT: normal external ear exam Mouth exam: PRESENT: moist, tongue midline Neck exam: ABSENT: carotid bruit, JVD, lymphadenopathy, thyromegaly Respiratory exam: PRESENT: clear to auscultation eneida. ABSENT: rales, rhonchi, wheezes Cardiovascular exam: PRESENT: RRR. ABSENT: diastolic murmur, rubs, systolic murmur Pulses: PRESENT: normal dorsalis pedis pul Vascular exam: PRESENT: normal capillary refill GI/Abdominal exam: PRESENT: normal bowel sounds, soft. ABSENT: distended, guarding, mass, organolmegaly, rebound, tenderness Rectal exam: PRESENT: deferred Extremities exam: PRESENT: full ROM. ABSENT: calf tenderness, clubbing, pedal edema Neurological exam: PRESENT: alert, awake, oriented to person, oriented to place , oriented to time, oriented to situation, CN II-XII grossly intact. ABSENT: motor sensory deficit Psychiatric exam: PRESENT: appropriate affect, normal mood. ABSENT: homicidal ideation, suicidal ideation Skin exam: PRESENT: dry, intact, warm. ABSENT: cyanosis, rash Results Laboratory Results: 02/10/18 04:34 02/12/18 04:51 02/12/18 04:51 Sodium 142.6 Potassium 5.9 H Chloride 115 H Carbon Dioxide 21 L Anion Gap 7 BUN 20 Creatinine 1.23 Est GFR ( Amer) > 60 Est GFR (Non-Af Amer) > 60 Glucose 82 Calcium 9.3 02/10/18 04:34 Creatine Kinase 784 H Assessment & Plan - Diagnosis (1) Acute kidney injury Is this a current diagnosis for this admission?: Yes Plan: Has improved markedly (2) Severe hyperkalemia Is this a current diagnosis for this admission?: Yes Plan: Improving - Time Time Spent with patient: 25-34 minutes
[2018-02-12] MEDS: HYDRALAZINE HCL 50 MG TABLET PO SCH ×2 (18:17→21:10)
[2018-02-12] MEDS ORDERED: METOPROLOL TARTRATE 50 MG TABLET PO SCH (22:00)
[2018-02-13] MEDS: LANSOPRAZOLE 30 MG TAB.RAP.DR PO SCH (05:03)
[2018-02-13] MEDS: HYDRALAZINE HCL 50 MG TABLET PO SCH (05:03)
[2018-02-13] MEDS: NORMAL SALINE 1000 ML 1,000 ML IV PRN (07:02)
[2018-02-13 07:08] LABS: ANION GAP 9 (5-19); BLOOD UREA NITROGEN 18 mg/dL (7-20); CALCIUM 8.9 mg/dL (8.4-10.2); CARBON DIOXIDE 23 mmol/L (22-30); CHLORIDE 114 mmol/L (98-107); GLUCOSE 84 mg/dL (75-110); POTASSIUM 4.8 mmol/L (3.6-5.0)
--- NOTE | 2018-02-13 10:13 | PDOC DISCHARGE SUMMARY ---
General - Admit/Disc Date/PCP Admission Date/Primary Care Provider: 02/09/18 22:01 ELLEN ZHANG MD Discharge Date: 02/13/18 - Discharge Diagnosis (1) Acute kidney injury Is this a current diagnosis for this admission?: Yes (2) Severe hyperkalemia Is this a current diagnosis for this admission?: Yes - Additional Information Discharge Diet: As Tolerated Discharge Activity: Activity As Tolerated Prescriptions: Hydralazine HCl [Apresoline 50 mg Tablet] 50 mg PO Q8 #90 tablet Home Medications: Hydralazine HCl [Apresoline 50 mg Tablet] 50 mg PO Q8 #90 tablet 02/13/18 History of Present Illness History of Present Illness: ARDEN JENKINS is a 62 year old black male with no significant medical history except hypertension presents with bilateral leg cramps. His initial blood work shows acute kidney injury with creatinine of 3.9 and mild rhabdomyolysis and severe hyperkalemia with potassium of 6.3. Patient denied any history of kidney disease and no external fluid loss in the form of vomiting or diarrhea. Patient works at [employer] and his work requires him to do frequent trips to outside. Patient stayed outside the whole day yesterday. He denies any fever, chills, cough, chest pain, palpitation, diaphoresis. No urinary complaints. No headache dizziness or blurry vision. He also has hyperkalemia and no EKG changes. Hospital Course Hospital Course: This is 70 years old black male patient admitted with acute kidney injury secondary to dehydration at admission his creatinine was 3.99 and today on the day of discharge it is 1.32 after aggressive hydration with normal saline. Patient was also found to have hyperkalemia with potassium of 6.3 for which she was given Kayexalate and today on the day of discharge his potassium is 3.48. Since patient is running low instead of metoprolol I switched him to hydralazine 50 mg 3 times a day and I discontinued also his lisinopril in the face of acute kidney injury. Currently patient is awake alert oriented is not in pain or any form of distress he does not have any new complaints. Vital signs are stable labs are within normal limits patient is good to go end of dictation. Physical Exam Vital Signs: Temp Pulse Resp BP Pulse Ox 99.0 F 56 L 18 124/67 100 02/13/18 08:18 02/13/18 08:18 02/13/18 08:18 02/13/18 08:18 02/13/18 08:18 Intake & Output 02/12/18 02/13/18 02/14/18 06:59 06:59 06:59 Intake Total 7881 7523 Balance 7881 7523 Weight 105.9 kg 107.4 kg General appearance: PRESENT: no acute distress, well-developed, well-nourished Head exam: PRESENT: atraumatic, normocephalic Eye exam: PRESENT: conjunctiva pink, EOMI, PERRLA. ABSENT: scleral icterus Ear exam: PRESENT: normal external ear exam Mouth exam: PRESENT: moist, tongue midline Neck exam: ABSENT: carotid bruit, JVD, lymphadenopathy, thyromegaly Respiratory exam: PRESENT: clear to auscultation eneida. ABSENT: rales, rhonchi, wheezes Cardiovascular exam: PRESENT: RRR. ABSENT: diastolic murmur, rubs, systolic murmur Pulses: PRESENT: normal dorsalis pedis pul Vascular exam: PRESENT: normal capillary refill GI/Abdominal exam: PRESENT: normal bowel sounds, soft. ABSENT: distended, guarding, mass, organolmegaly, rebound, tenderness Rectal exam: PRESENT: deferred Extremities exam: PRESENT: full ROM. ABSENT: calf tenderness, clubbing, pedal edema Neurological exam: PRESENT: alert, awake, oriented to person, oriented to place , oriented to time, oriented to situation, CN II-XII grossly intact. ABSENT: motor sensory deficit Psychiatric exam: PRESENT: appropriate affect, normal mood. ABSENT: homicidal ideation, suicidal ideation Skin exam: PRESENT: dry, intact, warm. ABSENT: cyanosis, rash Results Laboratory Results: 02/10/18 04:34 02/13/18 06:34 02/13/18 06:34 Sodium 146.0 H Potassium 4.8 Chloride 114 H Carbon Dioxide 23 Anion Gap 9 BUN 18 Creatinine 1.32 H Est GFR ( Amer) > 60 Est GFR (Non-Af Amer) 55 L Glucose 84 Calcium 8.9 02/10/18 04:34 Creatine Kinase 784 H Qualifiers - * PATIENT BEING DISCHARGED WITH ANY OF THE FOLLOWING DIAGNOSIS: No
[2018-02-13] MEDS: ENOXAPARIN SODIUM INJ 40 MG/0.4 ML DISP.SYRIN SUBCUT SCH (10:27)
[2018-02-13 12:13] VITALS: BP 98/58
== END 2018-02-13 12:22 | disposition home or self-care (01) | DRG 683 ==
LOC: ER 16:17 → EH 22:01 → 4S 02-10 00:17
PROVIDERS: ADMIT Internal Medicine; ATTEND Internal Medicine
DX: N17.9 Acute kidney failure, unspecified (principal); M62.82 Rhabdomyolysis; E87.5 Hyperkalemia; E86.0 Dehydration; I10 Essential (primary) hypertension; M19.90 Unspecified osteoarthritis, unspecified site; F17.210 Nicotine dependence, cigarettes, uncomplicated; R00.1 Bradycardia, unspecified; Z79.899 Other long term (current) drug therapy; Z82.5 Family history of asthma and other chronic lower respiratory diseases
CPT/HCPCS: 36415; 80048; 80053; 81001; 82550; 83735; 85025; 85027; 93005; 93010; 99285; J1650; J1815; J3490; J7030

== ENCOUNTER → 2019-12-08 | Outpatient (CLI) | payer OTHER ==
[2019-12-08 12:08] LABS: ABSOLUTE BASOPHILS # (AUTO) 0.1 10^3/uL (0.0-0.2); ABSOLUTE EOSINOPHILS # (AUTO) 0.2 10^3/uL (0.0-0.6); ABSOLUTE LYMPHOCYTES (AUTO) 2.3 10^3/uL (0.5-4.7); ABSOLUTE MONOCYTES (AUTO) 0.3 10^3/uL (0.1-1.4); ABSOLUTE NEUT (AUTO) 1.3 10^3/uL (1.7-8.2); BASOPHILS % (AUTO) 1.5 % (0-2); EOSINOPHILS % (AUTO) 5.2 % (0-6); HEMATOCRIT 47.2 % (37.9-51.0); HEMOGLOBIN 16.3 g/dL (13.5-17.0); LYMPHOCYTES % (AUTO) 55.6 % (13-45); MEAN CORPUSCULAR HEMOGLOBIN 33.5 pg (27.0-33.4); MEAN CORPUSCULAR HGB CONC 34.4 g/dL (32.0-36.0); MEAN CORPUSCULAR VOLUME 97 fl (80-97); MONOCYTES % (AUTO) 7.5 % (3-13); PLATELET COUNT 215 10^3/uL (150-450); RED BLOOD COUNT 4.85 10^6/uL (4.35-5.55); RED CELL DISTRIBUTION WIDTH 14.7 % (11.5-14.0); SEGMENTED NEUTROPHILS % (AUTO) 30.2 % (42-78); TOTAL CELLS COUNTED % (AUTO) 100 %; WHITE BLOOD COUNT 4.2 10^3/uL (4.0-10.5)
[2019-12-08 12:32] LABS: ALBUMIN 4.6 g/dL (3.5-5.0); ALKALINE PHOSPHATASE 83 U/L (38-126); ANION GAP 6 (5-19); ASPARTATE AMINO TRANSFERASE 35 U/L (17-59); BILIRUBIN,TOTAL 0.6 mg/dL (0.2-1.3); BLOOD UREA NITROGEN 16 mg/dL (7-20); CALCIUM 9.7 mg/dL (8.4-10.2); CARBON DIOXIDE 28 mmol/L (22-30); CHLORIDE 106 mmol/L (98-107); GLUCOSE 85 mg/dL (75-110); POTASSIUM 4.8 mmol/L (3.6-5.0); TOTAL PROTEIN 8.4 g/dL (6.3-8.2)
== END ==
LOC: CCC 11:12
PROVIDERS: ATTEND Family Medicine
DX: I10 Essential (primary) hypertension (principal)
CPT/HCPCS: 36415; 80053; 85025

== ENCOUNTER → 2020-06-14 | Outpatient (CLI) | payer OTHER ==
[2020-06-14 10:25] LABS: ABSOLUTE BASOPHILS # (AUTO) 0.1 10^3/uL (0.0-0.2); ABSOLUTE EOSINOPHILS # (AUTO) 0.2 10^3/uL (0.0-0.6); ABSOLUTE LYMPHOCYTES (AUTO) 2.1 10^3/uL (0.5-4.7); ABSOLUTE MONOCYTES (AUTO) 0.3 10^3/uL (0.1-1.4); ABSOLUTE NEUT (AUTO) 1.4 10^3/uL (1.7-8.2); BASOPHILS % (AUTO) 1.5 % (0-2); EOSINOPHILS % (AUTO) 4.7 % (0-6); HEMATOCRIT 44.1 % (37.9-51.0); HEMOGLOBIN 15.1 g/dL (13.5-17.0); LYMPHOCYTES % (AUTO) 51.8 % (13-45); MEAN CORPUSCULAR HEMOGLOBIN 33.3 pg (27.0-33.4); MEAN CORPUSCULAR HGB CONC 34.3 g/dL (32.0-36.0); MEAN CORPUSCULAR VOLUME 97 fl (80-97); MONOCYTES % (AUTO) 8.2 % (3-13); PLATELET COUNT 227 10^3/uL (150-450); RED BLOOD COUNT 4.55 10^6/uL (4.35-5.55); RED CELL DISTRIBUTION WIDTH 14.4 % (11.5-14.0); SEGMENTED NEUTROPHILS % (AUTO) 33.8 % (42-78); TOTAL CELLS COUNTED % (AUTO) 100 %; WHITE BLOOD COUNT 4.1 10^3/uL (4.0-10.5)
[2020-06-14 10:46] LABS: ALBUMIN 4.5 g/dL (3.5-5.0); ALKALINE PHOSPHATASE 82 U/L (38-126); ANION GAP 10 (5-19); ASPARTATE AMINO TRANSFERASE 36 U/L (17-59); BILIRUBIN,DIRECT 0.3 mg/dL (0.0-0.4); BILIRUBIN,TOTAL 0.6 mg/dL (0.2-1.3); BLOOD UREA NITROGEN 13 mg/dL (7-20); CALCIUM 9.3 mg/dL (8.4-10.2); CARBON DIOXIDE 26 mmol/L (22-30); CHLORIDE 107 mmol/L (98-107); CHOLESTEROL 181.51 mg/dL (0-200); GLUCOSE 87 mg/dL (75-110); POTASSIUM 4.2 mmol/L (3.6-5.0); TOTAL PROTEIN 8.1 g/dL (6.3-8.2); TRIGLYCERIDES 85 mg/dL (<150)
[2020-06-14 10:57] LABS: DIRECT LDL 123 mg/dL (<100)
== END ==
LOC: CCC 09:17
PROVIDERS: ATTEND Family Medicine
DX: Z00.00 Encounter for general adult medical examination without abnormal findings (principal)
CPT/HCPCS: 36415; 80053; 80061; 83036; 84443; 85025

== ENCOUNTER → 2020-07-12 | Outpatient (CLI) | payer OTHER ==
[2020-07-12 14:41] LABS: URINE PROTEIN 7.8 mg/dL (<12)
== END ==
LOC: CCC 12:18
PROVIDERS: ATTEND Family Medicine
DX: Z13.9 Encounter for screening, unspecified (principal)
CPT/HCPCS: 82570; 84156